=== PATIENT | female | born 2000 | race Caucasian/White ===

== ENCOUNTER 2022-03-11 20:57 | Emergency (ER) | payer OTHER ==
[~2022-03-11] VITALS: Ht 157.5 cm; Wt 63.6 kg
[2022-03-11 20:58] VITALS: BP 109/68
[2022-03-11 22:18] LABS: BASOPHILS % (AUTO) 0.5 % (0.0-2.0); EOSINOPHILS % (AUTO) 2.2 % (1.0-6.0); HEMATOCRIT 30.4 % (36-46); HEMOGLOBIN 10.5 g/dL (12.0-16.0); LYMPHOCYTES # (AUTO) 2.1 K/uL (1.0-4.8); LYMPHOCYTES % (AUTO) 32.2 % (22.0-44.0); MEAN CORPUSCULAR HGB CONC 34.6 G/dL (31.0-37.0); MEAN CORPUSCULAR VOLUME 92 fL (80-100); MONOCYTES # (AUTO) 0.6 K/uL (0.1-1.0); MONOCYTES % (AUTO) 8.8 % (2.0-9.0); NEUTROPHILS # (AUTO) 3.6 K/uL (1.8-7.7); NEUTROPHILS % (AUTO) 56.3 % (40.0-70.0); PLATELET COUNT (AUTO) 175 K/uL (150-450); RED CELL DISTRIBUTION WIDTH 12.6 % (11.5-14.5)
[2022-03-12] MEDS ORDERED: ONDA-104 PO (09:31)
== END 2022-03-12 00:23 | disposition home or self-care (01) ==
LOC: EMS 21:06
DX: O46.91 Antepartum hemorrhage, unspecified, first trimester (principal); Z3A.09 9 weeks gestation of pregnancy
CPT/HCPCS: 84702; 85025; 86901; 99283

== ENCOUNTER 2022-03-12 09:10 | Emergency (ER) | payer OTHER ==
[~2022-03-12] VITALS: Ht 157.5 cm; Wt 63.6 kg
[2022-03-12] MEDS ORDERED: ONDA-104 PO (09:31)
[2022-03-12 11:30] VITALS: BP 112/65
== END 2022-03-12 12:10 | disposition home or self-care (01) ==
LOC: EMS 09:21
DX: O26.891 Other specified pregnancy related conditions, first trimester (principal); O46.91 Antepartum hemorrhage, unspecified, first trimester; Z3A.11 11 weeks gestation of pregnancy
CPT/HCPCS: 76801; 76817; 99284; Z7502

== ENCOUNTER 2024-12-15 23:19 | Emergency (ER) | payer OTHER ==
[~2024-12-15] VITALS: Ht 157.5 cm; Wt 81.8 kg
[~2024-12-15 23:19] MED LIST: ONDA-104 PO
[2024-12-15 23:28] VITALS: BP 114/67; PULSE 90; RESP 15; TEMP 98.1; O2SAT 99
[2024-12-16] MEDS: CefTRIAXone SODIUM 1 GM/VIAL IM ONE (01:43)
[2024-12-16] MEDS: SULFAMETHOX/TRIMETH DS 800-160 MG/TABLET PO ONE (01:44)
[2024-12-16] MEDS: LIDOCAINE/PF 1% 2 ML VIAL IM ONE (01:45)
[2024-12-16] MEDS ORDERED: SULF-261 PO (02:03)
[2024-12-16] MEDS ORDERED: DIPH25CA85 PO (02:03)
[2024-12-16] MEDS ORDERED: CEPH-558 PO (02:03)
== END 2024-12-16 02:24 | disposition home or self-care (01) ==
LOC: EMS 23:22
DX: L03.114 Cellulitis of left upper limb (principal)
CPT/HCPCS: 99283; 96372; J0696; J3490